=== PATIENT | female | born 1950 | race Hispanic/Latino ===

== ENCOUNTER 2024-06-16 11:56 | Emergency (ER) | payer MEDICARE ==
[~2024-06-16] VITALS: Ht 157.5 cm; Wt 66.7 kg
[2024-06-16 12:00] VITALS: TEMP 99.8
[2024-06-16 12:26] LABS: BASOPHILS # (AUTO) 0.1 (0.0-0.1); BASOPHILS % 0.7 % (0.0-1.0); EOSINOPHILS % 0.3 % (0.0-6.0); HEMATOCRIT 39.6 % (34.2-44.1); HEMOGLOBIN 13.4 g/dL (12.0-16.0); LYMPHOCYTES # (AUTO) 1.9 (1.0-3.2); LYMPHOCYTES % 21.3 % (18.0-39.1); MEAN CORPUSCULAR HEMOGLOBIN 31.9 pg (28-32); MEAN CORPUSCULAR HGB CONC 33.8 g/dL (31-35); MEAN CORPUSCULAR VOLUME 94.3 fL (81-99); MONOCYTES # (AUTO) 1.1 (0.2-0.8); MONOCYTES % 11.9 % (4.4-11.3); NEUTROPHILS # (AUTO) 5.8 (2.1-6.9); NEUTROPHILS % 65.5 % (38.7-80.0); PLATELET COUNT 96 x10e3/uL (140-360); RED CELL DISTRIBUTION WIDTH 12.5 % (11.7-14.4)
[2024-06-16 12:46] LABS: ALBUMIN 3.4 g/dL (3.5-5.0); ANION GAP 11.8 mmol/L (8-16); BILIRUBIN,TOTAL 1.3 mg/dL (0.2-1.2); CALCIUM 9.3 mg/dL (8.4-10.2); CREATININE, SERUM 0.8 mg/dL (0.57-1.11); POTASSIUM 3.8 mmol/L (3.5-5.1); TOTAL PROTEIN 6.8 g/dL (6.5-8.1)
[2024-06-16] MEDS: SODIUM CHLORIDE 0.9% 1000ML 1,000 ML IV ONE (12:50)
[2024-06-16 13:00] VITALS: PULSE 74; RESP 16; O2SAT 97
== END 2024-06-16 14:04 | disposition home or self-care (01) ==
LOC: ER 12:11
DX: E11.65 Type 2 diabetes mellitus with hyperglycemia (principal); U07.1 COVID-19; N39.0 Urinary tract infection, site not specified; R53.1 Weakness
CPT/HCPCS: 36415; 80053; 82948; 83036; 85025; 93005; 99283; J7030